=== PATIENT | female | born 1960 | race Caucasian/White ===

== ENCOUNTER → 2022-08-24 10:00 | Outpatient (BNVA) | payer BC, SELFPAY | PROVIDERS: PCP Family Medicine; Visit Provider Internal Medicine | DX: Z13.89 Encounter for screening for other disorder (principal) ==

== ENCOUNTER 2022-09-16 06:06 | Outpatient (REF) | payer BC, SELFPAY ==
--- NOTE | ~2022-09-16 | FL_ITS ---
EXAMINATION: XR FLUOROSCOPY WITH IMAGES CLINICAL INFORMATION: Sacrococcygeal disorder. COMPARISON: None. TECHNIQUE: Fluoroscopy Supervised By: Dr. Reggie Camejo. Fluoroscopy Time: 0.1 minutes. Cumulative Dose: 1.56 mGy. DAP: 0.193 Gycm2. Images: 5. FINDINGS: Views demonstrate placement of a needle about the right sacroiliac joint. FL/FL guidance in treatment room IMPRESSION: Intraoperative fluoroscopy for pain management procedure.
== END 2022-09-16 06:07 | disposition home or self-care (01) ==
LOC: CF 06:06
PROVIDERS: Visit Provider Internal Medicine
DX: M53.3 Sacrococcygeal disorders, not elsewhere classified (principal); G58.8 Other specified mononeuropathies
CPT/HCPCS: 64451

== ENCOUNTER → 2022-09-18 12:02 | Outpatient (BNVA) | payer BC, SELFPAY | PROVIDERS: PCP Family Medicine; Visit Provider Internal Medicine | DX: Z13.89 Encounter for screening for other disorder (principal) ==

== ENCOUNTER → 2022-09-28 14:46 | Outpatient (BNVA) | payer BC, SELFPAY | PROVIDERS: PCP Family Medicine; Visit Provider Internal Medicine | DX: Z13.89 Encounter for screening for other disorder (principal) ==

== ENCOUNTER 2024-02-09 10:56 | Outpatient (AMB) | payer BC, SELFPAY ==
--- NOTE | 2024-02-09 11:00 | A.OFFVIS_ITS ---
Vital Signs 3 02/09/24 11:01 Height 5 ft 1 in Weight 146 lb BMI 27.6 BP 186/74 H Blood Pressure Location Lt brachial Position Sitting Respiration 14 Pulse 76 Pulse Source Pulse Oximeter Pulse Oximetry (%) 98 Oxygen Delivery Method Room Air Intake Visit Reasons: Discuss SIJ Fusion Allergies codeine Adverse Reaction (Intermediate, Verified 02/09/24 11:03) Rash Medication List - Last Reconciled 02/09/24 by Livia Montanez LPN ascorbate calcium (vitamin C) 500 mg PO DAILY aspirin (Adult Aspirin Regimen) 81 mg PO DAILY cholecalciferol (vitamin D3) 50 mcg PO DAILY estradiol (Yuvafem) 10 mcg vaginal 2XW folic acid 0.4 mg PO DAILY lisinopril 30 mg PO DAILY mecobalamin (vitamin B12) (B12 Active) 1,000 mcg PO DAILY HPI HPI Discuss SIJ Fusion : Details: 63-year-old female who presents to the office to discuss right low back and pubic pain. She complains of worsening pain and tightness in the groin, right leg and foot on the outer right side. Her pain radiates to the hip and lower back after walking upstairs. She describes the pain as pinching with sitting position. Her pain aggravates with lifting weights. She is unable to do exercises at gym because of the pain. She has stopped physical therapy back in June 2023 because of excruciating pain. She has received previous intra-articular SI joint infection through Dr. Lopez, which did not provide any pain relief. MRI of the pelvis in 2019 did not show evidence of sacroiliitis. MRI of the right hip did not show any abnormality of the hip joint. She had an MRI of the lumbar spine that was done at [facility]. The report was unremarkable but she does not have images for me to review today. Past Procedures: 09/16/22: Right diagnostic SIJ innervation block ? 50% relief for 2-3 hours [facility] Medical History (Updated 09/28/22 @ 15:08 by Reggie Camejo MD) Sacroiliac joint dysfunction HTN (hypertension) Review of Systems Const All systems reviewed & are unremarkable except as noted in HPI and below Physical Exam Vital Signs: Last Vital Signs Pulse 76 02/09/24 11:01 Resp 14 02/09/24 11:01 BP 186/74 H 02/09/24 11:01 Pulse Ox 98 02/09/24 11:01 Oxygen Delivery Method Room Air 02/09/24 11:01 BMI result Body Mass Index 27.6 General: Appears afebrile. Alert and oriented. Mood and affect appropriate. Follows and participates in conversation appropriately. Respiratory effort is unlabored. Able to transition from sit to stand unassisted. 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 The diagnostic sacroiliac joint nerve block did provide her more than 50% diagnostic relief, so she is interested in proceeding with the PNS trial. I will place a referral for behavioral clearance prior to proceeding with scheduling a trial. With respect to her osteitis pubis symptoms, we discussed potential corticosteroid injection into the pubic symphysis. The patient would like to think about that and let us know if and when she decides to proceed with it. In the meanwhile, she will drop off for lumbar spine MRI images for us to review for potential targets to explain her symptoms that may have been missed on the report. Scribed for Dr. Camejo by Kelvin Tracy, medical records analyst, on 02/09/2024. I, Dr. Camejo, have personally reviewed and agree with the information entered by the scribe. Coding Level of Care Code Est Pt Level 4 (87043) Diagnoses Osteitis pubis M86.9 Cluneal neuropathy G58.8 Sacroiliac joint dysfunction M53.3
[2024-02-09 11:01] VITALS: BP 186/74; PULSE 76; RESP 14; O2SAT 98; BMI 27.6
== END 2024-02-09 11:33 | disposition home or self-care (01) ==
PROVIDERS: PCP Family Medicine; Visit Provider Internal Medicine
DX: M86.9 Osteomyelitis, unspecified (principal); G58.8 Other specified mononeuropathies; M53.3 Sacrococcygeal disorders, not elsewhere classified
CPT/HCPCS: 99214

== ENCOUNTER → 2024-02-09 10:56 | Outpatient (BNVA) | payer BC, SELFPAY | PROVIDERS: PCP Family Medicine; Visit Provider Internal Medicine ==

== ENCOUNTER 2024-06-07 10:30 | Day surgery (SDC) | payer BC, SELFPAY ==
--- NOTE | 2024-06-06 09:56 | P.CONAN_ITS ---
Documented by User: Sheeba Burns NP 06/06/24 09:57 HPI - Anesthesia Eval Consult details Narrative: 63yo F for Right Cluneal Nerve Peripheral Nerve Stimulator Trial [facility] Active Problems Active Problems: All Active Problems Osteitis pubis (Acute) Cluneal neuropathy (Acute) Sacroiliac joint dysfunction (Acute) Past Medical History Medical History (Updated 06/07/24 @ 10:45 by Blanca Smith, RN) Environmental asthma Sacroiliac joint dysfunction HTN (hypertension) Surgical History Surgical History (Updated 06/07/24 @ 10:46 by Blanca Smith, RN) H/O breast surgery H/O shoulder replacement H/O plastic surgery Social History Social History Are you a primary home care assistant to a significant other at home: No Do you presently have visiting nurse or other home services: No Patient Tobacco Use Status: Former Tobacco user Tobacco use type: Cigarette Years Smoked: 40 Smoked in Last 30 Days: No Use of substances other than those prescribed or required for medical reasons: Yes Substance Use Type Other:: very rare Substance Use Frequency: Socially Have you been hit, kicked, punched, or otherwise hurt by someone within the past year? If so, by whom?: No Are you DNR?: No Advance Directives: No Advance Directives Information Provided: Yes (Jhoan Almaguer () [phone] (per patient)) Advance Directives on File: No Recently lost weight without trying: No How much weight loss: Not applicable Eating poorly because of decreased appetite: No Nutrition screen score: 0 Nutrition Risks: No Nutritional Risk Patient : No : No Poor oral hygiene: Yes (upper and lower partial) Meds Allergies Allergy/AdvReac Type Severity Reaction Status Date / Time codeine AdvReac Intermediate Rash Verified 06/07/24 10:46 Home Medications ?Medication ?Instructions ?Recorded ?Confirmed ?Last Taken ?Type aspirin 81 mg tablet,delayed 81 mg PO DAILY 08/24/22 06/07/24 05/31/24 History release (Adult Aspirin Regimen) lisinopril 30 mg tablet 30 mg PO DAILY 08/24/22 06/07/24 06/06/24 History ascorbate calcium (vitamin C) 500 500 mg PO DAILY 02/09/24 06/07/24 Unknown His tory mg tablet cholecalciferol (vitamin D3) 50 50 mcg PO DAILY 02/09/24 06/07/24 Unknown History mcg (2,000 unit) capsule folic acid 400 mcg tablet 0.4 mg PO DAILY 02/09/24 06/07/24 Unknown History mecobalamin (vitamin B12) 1,000 1,000 mcg PO DAILY 02/09/24 06/07/24 Unknown History mcg chewable tablet (B12 Active) estradiol 10 mcg vaginal tablet 10 mcg vaginal 2XW 06/07/24 06/07/24 Unknown History (Yuvafem) Assessment and Plan Assessment Anesthesia Assessment: Chart Reviewed Documented by User: Marycarmen Maldonado MD 06/07/24 11:14 [facility] Past Medical History Medical History (Updated 06/07/24 @ 10:45 by Blanca Smith RN) Environmental asthma Sacroiliac joint dysfunction HTN (hypertension) Family History Family history of problems with anesthesia: No Surgical History Surgical History (Updated 06/07/24 @ 10:46 by Blanca Smith RN) H/O breast surgery H/O shoulder replacement H/O plastic surgery History of Problems with Anesthesia: No Social History Social History Are you a primary home care assistant to a significant other at home: No Do you presently have visiting nurse or other home services: No Patient Tobacco Use Status: Former Tobacco user Tobacco use type: Cigarette Years Smoked: 40 Smoked in Last 30 Days: No Use of substances other than those prescribed or required for medical reasons: Yes Substance Use Type Other:: very rare Substance Use Frequency: Socially Have you been hit, kicked, punched, or otherwise hurt by someone within the past year? If so, by whom?: No Are you DNR?: No Advance Directives: No Advance Directives Information Provided: Yes (Jhoan Almaguer () [phone] (per patient)) Advance Directives on File: No Recently lost weight without trying: No How much weight loss: Not applicable Eating poorly because of decreased appetite: No Nutrition screen score: 0 Nutrition Risks: No Nutritional Risk Patient : No : No Poor oral hygiene: Yes (upper and lower partial) Meds Allergies Allergy/AdvReac Type Severity Reaction Status Date / Time codeine AdvReac Intermediate Rash Verified 06/07/24 10:46 Home Medications ?Medication ?Instructions ?Recorded ?Confirmed ?Last Taken ?Type aspirin 81 mg tablet,delayed 81 mg PO DAILY 08/24/22 06/07/24 05/31/24 History release (Adult Aspirin Regimen) lisinopril 30 mg tablet 30 mg PO DAILY 08/24/22 06/07/24 06/06/24 History ascorbate calcium (vitamin C) 500 500 mg PO DAILY 02/09/24 06/07/24 Unknown Hist ory mg tablet cholecalciferol (vitamin D3) 50 50 mcg PO DAILY 02/09/24 06/07/24 Unknown History mcg (2,000 unit) capsule folic acid 400 mcg tablet 0.4 mg PO DAILY 02/09/24 06/07/24 Unknown History mecobalamin (vitamin B12) 1,000 1,000 mcg PO DAILY 02/09/24 06/07/24 Unknown History mcg chewable tablet (B12 Active) estradiol 10 mcg vaginal tablet 10 mcg vaginal 2XW 06/07/24 06/07/24 Unknown History (Yuvafem) Exam Airway Mallampati Class: II TM Dist: >3cm Neck ROM: Full Partial: Upper and Lower Heart: rrr Lungs: cta Assessment and Plan Assessment Anesthesia Assessment: Anesthesia Plan Discussed Final Anesthetic Review Family History of Problems with Anesthesia: No History of Problems with Anesthesia: No NPO: Yes ASA Class: II Final Preanesthetic Review: No Changes in Pt Med Stat, Meds/Allgs Chart Reviewed and Consent Obtained/Reviewed Patient Risk: Low Procedure Risk: Low Anesthetic Plan Anesthetic Plan: MAC: Disposition: Standard PACU
[2024-06-07 10:49] VITALS: BMI 27.4
[2024-06-07 11:03] VITALS: BP 148/68; PULSE 61; RESP 16; TEMP 36.7; O2SAT 98
[2024-06-07] MEDS: Lactated Ringers 1,000 ML 100 ML IVCONT (11:23)
--- NOTE | 2024-06-07 11:46 | MHC.SHP ---
Pre-Procedural Eval Section A - 24 Hr Update-Section A only Date of Service: 06/07/24 The patient is an INPATIENT: No Changes since office visit: Yes Patient answered all questions The patient has been examined within 24 hours of the surgical procedure. The History & Physical has been completed within 30 days and I have reviewed it.: No Section B - Complete if H&P > 30 days Chief Complaint: Other specified mononeuropathies Relevant Family History (Specify if Yes): No Relevant Social History: None Present Medications: see Short Stay Collaborative assessment Medical History: No relevant PMH History of Previous Operations: No relevant previous surgery Allergies: Allergies Allergy/AdvReac Type Severity Reaction Status Date / Time codeine AdvReac Intermediate Rash Verified 06/07/24 10:46 Review of Systems Sugical H&P ROS: Negative: Constitution, Cardiovascular and Respiratory Exam Surgical H&P Exam: Normal: HEENT, Normal: Heart and Normal: Lungs Plan Diagnosis/Plan: Unchanged I have reviewed the history and physical and performed a pertinent physical examination on my patient. No changes have occurred unless specified. Time Spent With Patient Time: Total time managing care of this patient today ____ minutes.
[2024-06-07 13:10] LABS: MRSA Nasal PCR NEGATIVE (Negative); SA Nasal PCR NEGATIVE (Negative)
[2024-06-07 13:14] VITALS: BP 90/69; PULSE 63; RESP 16; TEMP 36.2; O2SAT 100
[2024-06-07 13:29] VITALS: BP 163/80; PULSE 68; RESP 18; TEMP 36.1; O2SAT 100
--- NOTE | 2024-06-07 16:06 | P.BOP_ITS ---
Brief Operative Note Date of Service: 06/07/24 Pre-op diagnosis: Middle cluneal neuropathy, right Post-op diagnosis: same Procedure: Middle cluneal nerve stimulator trial lead placement Implants: [employer]onix peripheral nerve stimulation trial lead Surgeon: Reggie Camejo MD Anesthesia: MAC Was an Leather Goods Assembler used for this Procedure?: No Estimated blood loss (mL): 10 Pathology: none sent Condition: stable Disposition: PACU
--- NOTE | 2024-06-07 16:07 | P.OP_ITS ---
Operative Note Operative Note Date of Service: 06/07/24 Narrative: Pre-procedure diagnosis: Cluneal neuropathy Postprocedure diagnosis: Same Percutaneous trial of peripheral nerve stimulation of right middle cluneal nerve After obtaining written consent, pre-procedure blood pressure and heart rate were stable and recorded in the nursing record. Standard monitors were applied. A peripheral IV was started. Antibiotics, cefazolin 2 grams, were given prior to the start of the procedure. The patient was positioned in prone position. The lumbar area was widely prepped with chloraprep and draped in sterile fashion. Using a skin marker, a 1 cm saggital line was marked over the needle entry location. The skin at the insertion site was anesthetized with 0.5% lidocaine mixed with bupivacaine 0.25% with epinephrine. A small stab was made with a scalpel to allow for easy insertion of the introducer in the right paraspinal position. The introducer was advanced subcutaneously along the length of the lateral sacrum. The electrode array was passed through the introducer using a tenting approach at a shallow angle. Fluoroscopy was used to confirm appropriate lead position. Stimulation was performed and good coverage was obtained. The lead was secured using benzoin, steri-strips and tegaderms. The patient tolerated the procedure well. No complications were encountered. Following the procedure the patient's vital signs were stable. The patient was discharged home in good condition with post- procedural instructions. Time Out: Immediately prior to the procedure, the following was verbally confirmed that there is a signed consent form and that the correct patient, planned procedure, site and side are consistent with documentation and that necessary equipment and/or blood products are available prior to the start of the case. Complications: none EBL: <5 cc
== END 2024-06-07 14:45 | disposition home or self-care (01) ==
PROVIDERS: Registered Nurse Emergency; PCP Family Medicine; Visit Provider Internal Medicine
PROC: (CPT 64555; principal; 2024-06-07 12:00)
DX: G57.81 Other specified mononeuropathies of right lower limb (principal); M53.3 Sacrococcygeal disorders, not elsewhere classified; M86.9 Osteomyelitis, unspecified; I10 Essential (primary) hypertension; Z79.82 Long term (current) use of aspirin; Z79.899 Other long term (current) drug therapy; Z88.5 Allergy status to narcotic agent; Z98.890 Other specified postprocedural states; Z87.891 Personal history of nicotine dependence
CPT/HCPCS: 64555; 87640; 87641; C1897; J0690; J2003; J2250; J2371; J2405; J2704; J3010

== ENCOUNTER → 2024-06-07 10:30 | Outpatient (BNV) | payer BC, SELFPAY | PROVIDERS: PCP Family Medicine; Visit Provider Internal Medicine | DX: G58.8 Other specified mononeuropathies (principal) | CPT/HCPCS: 64555 ==

== ENCOUNTER 2024-06-14 09:43 | Outpatient (AMB) | payer BC, SELFPAY ==
--- NOTE | 2024-06-14 09:46 | MHC.OFFVIS ---
Vital Signs 06/14/24 09:47 Height 5 ft 1 in Weight 145 lb BMI 27.4 BP 180/79 H Blood Pressure Location Lt brachial Position Sitting Respiration 16 Pulse 78 Pulse Source Pulse Oximeter Pulse Oximetry (%) 99 Oxygen Delivery Method Room Air Intake Visit Reasons: S/p (R) Trial of Cluneal Nerve PNS 06/07/24 Allergies codeine Adverse Reaction (Intermediate, Verified 06/14/24 09:48) Rash Medication List - Last Reconciled 06/14/24 by Livia Montanez LPN ascorbate calcium (vitamin C) 500 mg PO DAILY aspirin (Adult Aspirin Regimen) 81 mg PO DAILY cholecalciferol (vitamin D3) 50 mcg PO DAILY estradiol (Yuvafem) 10 mcg vaginal 2XW folic acid 0.4 mg PO DAILY lisinopril 30 mg PO DAILY mecobalamin (vitamin B12) (B12 Active) 1,000 mcg PO DAILY HPI HPI S/p (R) Trial of Cluneal Nerve PNS 06/07/24: Details: 63-year-old female who presents to the office for status post trial of cluneal nerve PNS. The patient reports 20 % relief following the procedure. She reports she is able to walk 100 yards but has to stop 2-4 times due to pulling in the groin and pelvis. Her groin pain aggravates while using stairs. She is able to walk 20 feet more than usual. She states she still continues to have pain while sitting/resting at times. Past Procedures: 06/07/24: Percutaneous trial of peripheral nerve stimulation of right middle cluneal nerve: 20 % relief 09/16/22: Right diagnostic SIJ innervation block ? 50% relief for 2-3 hours [facility] Medical History (Updated 06/07/24 @ 10:45 by Blanca Smith RN) Environmental asthma Sacroiliac joint dysfunction HTN (hypertension) Surgical History (Updated 06/07/24 @ 10:46 by Blanca Smith RN) H/O breast surgery H/O shoulder replacement H/O plastic surgery Social History Are you a primary animal care attendant to a significant other at home: No Do you presently have visiting nurse or other home services: No Patient Tobacco Use Status: Former Tobacco user Tobacco use type: Cigarette Years Smoked: 40 Review of Systems Const All systems reviewed & are unremarkable except as noted in HPI and below Physical Exam Vital Signs: Last Vital Signs Pulse 78 06/14/24 09:47 Resp 16 06/14/24 09:47 BP 180/79 H 06/14/24 09:47 Pulse Ox 99 06/14/24 09:47 Oxygen Delivery Method Room Air 06/14/24 09:47 BMI result Body Mass Index 27.4 General: Appears afebrile. Alert and oriented. Mood and affect appropriate. Follows and participates in conversation appropriately. Respiratory effort is unlabored. Able to transition from sit to stand unassisted. Ambulates with bilaterally normal heel strike and toe off. Lead insertion site is non tender. Dressing is intact. Edges of the dressings were reinforced. Results Reviewed Results Reviewed: No imaging is available for review. 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 She was cleared for house work and going to the gym for the next couple of days. Follow up on Wednesday for lead removal and final decision regarding the outcome of the trial. Scribed for Dr. Camejo by Lena certified medical technician assistant, on 06/14/2024. I, Dr. Camejo, have personally reviewed and agree with the information entered by the scribe. Coding Level of Care Code Est Pt Level 3 (75327) Diagnoses Cluneal neuropathy G58.8 Sacroiliac joint dysfunction M53.3
[2024-06-14 09:47] VITALS: BP 180/79; PULSE 78; RESP 16; O2SAT 99; BMI 27.4
== END 2024-06-14 10:28 | disposition home or self-care (01) ==
PROVIDERS: PCP Family Medicine; Visit Provider Internal Medicine
DX: G58.8 Other specified mononeuropathies (principal); M53.3 Sacrococcygeal disorders, not elsewhere classified
CPT/HCPCS: 99024